=== PATIENT | female | born 1995 | race Two or more races ===

== ENCOUNTER 2023-06-14 21:24 | Emergency (ER) | payer MEDICAID, OTHER ==
[~2023-06-14] VITALS: Ht 172.7 cm; Wt 106.0 kg
[2023-06-14 21:38] VITALS: TEMP 98.6
[2023-06-14] MEDS ORDERED: BACITRACIN 0.9 GM PACKET OINTMENT TP ONE (22:30)
[2023-06-14] MEDS ORDERED: PERTUSS(ACELL),DIPH,TET VAC/PF 0.5 ML SYRINGE IM. ONE (22:30)
[2023-06-14] MEDS ORDERED: AMOX1TAB16 PO (22:47)
[2023-06-14 23:01] VITALS: BP 120/80; PULSE 80; RESP 16
== END 2023-06-14 23:02 | disposition home or self-care (01) ==
LOC: EMS 21:25
DX: S01.01XA Laceration without foreign body of scalp, initial encounter (principal); F41.9 Anxiety disorder, unspecified; F31.9 Bipolar disorder, unspecified; F17.210 Nicotine dependence, cigarettes, uncomplicated; F12.90 Cannabis use, unspecified, uncomplicated; Z98.890 Other specified postprocedural states; X58.XXXA Exposure to other specified factors, initial encounter; Y93.89 Activity, other specified; Y92.89 Other specified places as the place of occurrence of the external cause; Y99.8 Other external cause status
CPT/HCPCS: 90471; 90715; 99283

== ENCOUNTER 2023-06-19 22:35 | Emergency (ER) | payer OTHER ==
[~2023-06-19] VITALS: Ht 162.6 cm; Wt 48.0 kg
[~2023-06-19 22:35] MED LIST: AMOX1TAB16 PO
[2023-06-19 22:41] VITALS: BP 106/60; PULSE 93; RESP 18; TEMP 98.4
== END 2023-06-20 00:08 | disposition home or self-care (01) ==
LOC: EMS 22:35
DX: S00.00XD Unspecified superficial injury of scalp, subsequent encounter (principal); F41.9 Anxiety disorder, unspecified; F31.9 Bipolar disorder, unspecified; F17.210 Nicotine dependence, cigarettes, uncomplicated; F12.90 Cannabis use, unspecified, uncomplicated; Z98.890 Other specified postprocedural states; X58.XXXD Exposure to other specified factors, subsequent encounter
CPT/HCPCS: 99282; 99283